=== PATIENT | male | born 1955 | race Caucasian/White ===

== ENCOUNTER 2021-04-27 14:03 | Outpatient (RCR) | payer MEDICARE, OTHER | END 2021-05-29 23:59 | LOC: PT 14:03 | DX: M25.571 Pain in right ankle and joints of right foot (principal) ==

== ENCOUNTER 2021-06-01 13:00 | Outpatient (RCR) | payer MEDICARE, OTHER | END 2021-06-24 17:00 | disposition home or self-care (01) | LOC: PT 13:00 | DX: M25.571 Pain in right ankle and joints of right foot (principal) ==

== ENCOUNTER 2022-04-14 10:59 | Outpatient (RCR) | payer MEDICARE, OTHER | END 2022-04-28 | disposition home or self-care (01) | LOC: PT | DX: M25.571 Pain in right ankle and joints of right foot (principal); Z96.661 Presence of right artificial ankle joint ==

== ENCOUNTER 2022-06-01 08:00 | Outpatient (RCR) | payer MEDICARE, OTHER | END 2022-06-29 | disposition home or self-care (01) | LOC: PT | DX: M25.571 Pain in right ankle and joints of right foot (principal) ==